=== PATIENT | female | born 1945 | race Caucasian/White ===

== ENCOUNTER 2020-03-26 11:43 | Emergency (ER) | payer MEDICARE, BC ==
[2020-03-26] MEDS ORDERED: Sodium Chloride 0.9% 10 ML Syringe FLUSH PRN (11:55)
--- NOTE | 2020-03-26 12:22 | EDM.PDOC ---
ED HPI GENERAL MEDICAL PROBLEM - General Chief Complaint: Chest Pain Stated Complaint: CHEST PAIN Time Seen by Provider: 03/26/20 11:55 Source of Information: Reports: Patient, RN Notes Reviewed History Limitations: Reports: No Limitations - History of Present Illness INITIAL COMMENTS - FREE TEXT/NARRATIVE: Patient is a 74-year-old female who presents to the ED for further evaluation of her intermittent chest pain. She notes that this is been present for the last couple weeks. She states that this comes and goes, seems to worsen at night when she sleeping on her left chest. She notes this pain is in the left mid chest region, at the top portion of her boob. She states this is somewhat of a pressure, and she states when she presses on her left chest, she can kind of re- create the pain or pressure. She does note that it seems to get better with rest. She is also noticed that she is getting more short of breath when she walks short distances, or up just a few stairs. She notes this is new for her. She states that she was making sauerkraut today when she developed the chest pain. She denies any trauma to her chest, and states she is not doing any pushing/pulling motions that would be abnormal for her. She did state that this chest pain woke her up at around 3 AM with the amount of discomfort she had. She does state that her sister recently had a quadruple bypass, and she notes her mother had issues with her heart as well however she cannot recall what this was. She believes that she had a stress test, but this was done many years ago and she thinks this was about 19 years ago. Her primary care provider is Dr. Cazares. She denies any fevers or chills, cough, nausea/vomiting/diarrhea, any abdominal pain. Left Chest Pain Score (Numeric/FACES): 3 - Related Data Allergies Allergy/AdvReac Type Severity Reaction Status Date / Time Sulfa (Sulfonamide Allergy Rash Verified 03/26/20 11:58 Antibiotics) Home Meds: Home Meds Bisoprolol/Hydrochlorothiazide [Bisoprolol/HCTZ 10-6.25 MG] 1 tab PO DAILY 03/26/20 [History] Losartan [Cozaar] 50 mg PO DAILY 03/26/20 [History] Simvastatin 1 tab PO BEDTIME 03/26/20 [History] amLODIPine [Norvasc] 5 mg PO DAILY 03/26/20 [History] Social & Family History - Family History Cardiac: Reports: Bypass (sister with recent quadruple bypass,), Other (See Below) (mother with unknown cardiac issues) - Tobacco Use Smoking Status *Q: Never Smoker - Alcohol Use Alcohol Use History: No - Recreational Drug Use Recreational Drug Use: No ED ROS GENERAL - Review of Systems Review Of Systems: Comprehensive ROS is negative, except as noted in HPI. ED EXAM, GENERAL - Physical Exam Exam: See Below Exam Limited By: No Limitations General Appearance: Alert, WD/WN, No Apparent Distress Respiratory/Chest: No Respiratory Distress, Lungs Clear, Normal Breath Sounds, No Accessory Muscle Use, Other (the patient's chest tender to palpation on the left chest in midclavicular line around the 3-5th ribs) Cardiovascular: Normal Peripheral Pulses, Regular Rate, Rhythm, No Murmur Peripheral Pulses: 2+: Radial (L), Radial (R) GI/Abdominal: Normal Bowel Sounds, Soft, Non-Tender, No Distention, No Mass Extremities: Normal Inspection, Normal Capillary Refill Neurological: Alert, Oriented, Normal Cognition, No Motor/Sensory Deficits Psychiatric: Normal Affect, Normal Mood Skin Exam: Warm, Dry, Intact, Normal Color, No Rash EKG INTERPRETATION EKG Date: 03/26/20 Time: 11:49 Rhythm: NSR Rate (Beats/Min): 62 [place]: Normal P-Wave: Present QRS: Normal ST-T: Normal QT: Normal Comparison: NA - No Prior EKG EKG Interpretation Comments: No obvious ischemia or acute ST changes noted, reviewed by myself and Dr. Dial Course - Vital Signs Last Recorded V/S: Last Vital Signs Temp 96.9 F 03/26/20 11:58 Pulse 59 L 03/26/20 11:58 Resp 16 03/26/20 11:58 BP 168/85 H 03/26/20 11:58 Pulse Ox 97 03/26/20 11:58 - Orders/Labs/Meds Orders: Active Orders 24 hr Category Date Time Status EKG Documentation Completion [RC] AM Care 03/26/20 11:55 Active Peripheral IV Care [RC] . DIRECTED Care 03/26/20 11:55 Active Sodium Chloride 0.9% [Normal Saline] 1,000 ml Med 03/26/20 12:56 Ordered IV ONETIME Sodium Chloride 0.9% [Saline Flush] Med 03/26/20 11:55 Active 10 ml FLUSH ASDIRECTED PRN Peripheral IV Insertion Adult [OM.PC] Stat Oth 03/26/20 11:55 Ordered Medication Orders Sodium Chloride (Normal Saline) 1,000 mls @ 999 mls/hr IV ONETIME ONE Stop: 03/26/20 13:56 Last Admin: 03/26/20 13:10 Dose: 999 mls/hr Documented by: SHIV Sodium Chloride (Saline Flush) 10 ml FLUSH ASDIRECTED PRN PRN Reason: Keep Vein Open Last Admin: 03/26/20 12:03 Dose: 10 ml Documented by: GARCÍA Labs: Laboratory Tests 03/26/20 03/26/20 03/26/20 Range/Units 12:00 12:00 12:00 WBC 4.09 (3.98-10.04) K/mm3 RBC 4.53 (3.98-5.22) M/mm3 Hgb 13.9 (11.2-15.7) gm/dl Hct 40.4 (34.1-44.9) % MCV 89.2 (79.4-94.8) fl MCH 30.7 (25.6-32.2) pg MCHC 34.4 (32.2-35.5) g/dl RDW Std Deviation 40.9 (36.4-46.3) fL Plt Count 253 (182-369) K/mm3 MPV 8.5 L (9.4-12.3) fl Neut % (Auto) 52.2 (34.0-71.1) % Lymph % (Auto) 35.2 (19.3-51.7) % [place] % (Auto) 10.5 (4.7-12.5) % Eos % (Auto) 1.7 (0.7-5.8) Baso % (Auto) 0.2 (0.1-1.2) % Neut # (Auto) 2.13 (1.56-6.13) K/mm3 Lymph # (Auto) 1.44 (1.18-3.74) K/mm3 [place] # (Auto) 0.43 H (0.24-0.36) K/mm3 Eos # (Auto) 0.07 (0.04-0.36) K/mm3 Baso # (Auto) 0.01 (0.01-0.08) K/mm3 PT 10.3 (9.7-12.0) SECONDS INR 0.96 APTT 25 (22-31) SECONDS Sodium 128 L (136-145) mEq/L Potassium 3.6 (3.5-5.1) mEq/L Chloride 93 L (98-107) mEq/L Carbon Dioxide 26 (21-32) mEq/L Anion Gap 12.6 (5-15) BUN 8 (7-18) mg/dL Creatinine 0.9 (0.55-1.02) mg/dL Est Cr Clr Drug Dosing 43.37 mL/min Estimated GFR (MDRD) > 60 (>60) mL/min BUN/Creatinine Ratio 8.9 L (14-18) Glucose 94 (83-115) mg/dL Calcium 9.1 (8.5-10.1) mg/dL Magnesium 1.8 (1.8-2.4) mg/dl Total Bilirubin 0.8 (0.2-1.0) mg/dL AST 27 (15-37) U/L ALT 11 L (14-59) U/L Alkaline Phosphatase 50 (46-116) U/L Troponin I < 0.017 (0.00-0.056) ng/mL NT-Pro-B Natriuret Pep (0-125) pg/mL Total Protein 7.8 (6.4-8.2) g/dl Albumin 4.2 (3.4-5.0) g/dl Globulin 3.6 gm/dL Albumin/Globulin Ratio 1.2 (1-2) 03/26/20 Range/Units 12:00 WBC (3.98-10.04) K/mm3 RBC (3.98-5.22) M/mm3 Hgb (11.2-15.7) gm/dl Hct (34.1-44.9) % MCV (79.4-94.8) fl MCH (25.6-32.2) pg MCHC (32.2-35.5) g/dl RDW Std Deviation (36.4-46.3) fL Plt Count (182-369) K/mm3 MPV (9.4-12.3) fl Neut % (Auto) (34.0-71.1) % Lymph % (Auto) (19.3-51.7) % [place] % (Auto) (4.7-12.5) % Eos % (Auto) (0.7-5.8) Baso % (Auto) (0.1-1.2) % Neut # (Auto) (1.56-6.13) K/mm3 Lymph # (Auto) (1.18-3.74) K/mm3 [place] # (Auto) (0.24-0.36) K/mm3 Eos # (Auto) (0.04-0.36) K/mm3 Baso # (Auto) (0.01-0.08) K/mm3 PT (9.7-12.0) SECONDS INR APTT (22-31) SECONDS Sodium (136-145) mEq/L Potassium (3.5-5.1) mEq/L Chloride (98-107) mEq/L Carbon Dioxide (21-32) mEq/L Anion Gap (5-15) BUN (7-18) mg/dL Creatinine (0.55-1.02) mg/dL Est Cr Clr Drug Dosing mL/min Estimated GFR (MDRD) (>60) mL/min BUN/Creatinine Ratio (14-18) Glucose (83-115) mg/dL Calcium (8.5-10.1) mg/dL Magnesium (1.8-2.4) mg/dl Total Bilirubin (0.2-1.0) mg/dL AST (15-37) U/L ALT (14-59) U/L Alkaline Phosphatase (46-116) U/L Troponin I (0.00-0.056) ng/mL NT-Pro-B Natriuret Pep 108 (0-125) pg/mL Total Protein (6.4-8.2) g/dl Albumin (3.4-5.0) g/dl Globulin gm/dL Albumin/Globulin Ratio (1-2) Meds: Medications Generic Name Dose Route Start Last Admin Trade Name Freq PRN Reason Stop Dose Admin Sodium Chloride 1,000 mls @ 999 mls/hr 03/26/20 12:56 03/26/20 13:10 Normal Saline IV 03/26/20 13:56 999 mls/hr ONETIME ONE Administration Sodium Chloride 10 ml 08/17/20 11:55 03/26/20 12:03 Saline Flush FLUSH 10 ml ASDIRECTED PRN Administration Keep Vein Open - Re-Assessments/Exams Free Text/Narrative Re-Assessment/Exam: 03/26/20 12:23 Patient presents to the ED for her ongoing chest discomfort. This may very well be chest wall pain as it is reproducible on exam. However due to her cardiac history in her family. I will set her up with a stress test on outpatient basis if everything comes back okay today. 03/26/20 12:58 Patient's labs have returned, metabolic panel is impressive for a low sodium of 128. Patient will be given a bag of fluids for management of this. No other major abnormalities were appreciated. Departure - Departure Time of Disposition: 13:19 Disposition: Home, Self-Care 01 Condition: Good Clinical Impression: Atypical chest pain, Dyspnea on exertion Instructions: Chest Wall Pain, [id number], Shortness of Breath, Adult, [id number] Referrals: Josef Cazares MD [Primary Care Provider] - Forms: ED Department Discharge Additional Instructions: You were evaluated in the ER today regarding your chest pain. Your EKG, chest x-ray, and laboratory evaluation demonstrates no sign of a heart attack, or any other specific cardiac etiology. Your sodium level was mildly low, you were given a bag of IV fluids to help supplement this. This may be due to increased water intake, among other things. I would recommend in the next day or 2, try to limit your water intake and drink fluids like Gatorade or Powerade, you may also try to eat a little extra salt with your meals as well. You have been given an outpatient order for a stress test, our hospital will call you to schedule you for the stress test. After the stress test has been done, you should make a follow-up appoint with Dr. Cazares, roughly 1 week after the test, for results and follow-up. Your chest pain seems to be most likely musculoskeletal chest wall pain. You can take 500 mg Tylenol or 600 mg ibuprofen every 6 hours as needed for further pain relief. Do not exceed 4000 mg Tylenol or 3200 mg ibuprofen in a 24-hour time span. Please return to the ER at any time if your symptoms change or worsen. Sepsis Event Note (ED) - Evaluation Sepsis Screening Result: No Definite Risk - Focused Exam Vital Signs: Vital Signs Temp Pulse Resp BP Pulse Ox 03/26/20 11:58 96.9 F 59 L 16 168/85 H 97 - My Orders Last 24 Hours: My Active Orders 03/26/20 11:55 EKG Documentation Completion [RC] AM Peripheral IV Care [RC] . DIRECTED Sodium Chloride 0.9% [Saline Flush] 10 ml FLUSH ASDIRECTED PRN Peripheral IV Insertion Adult [OM.PC] Stat 03/26/20 12:56 Sodium Chloride 0.9% [Normal Saline] 1,000 ml IV ONETIME - Assessment/Plan Last 24 Hours: My Active Orders 03/26/20 11:55 EKG Documentation Completion [RC] AM Peripheral IV Care [RC] . DIRECTED Sodium Chloride 0.9% [Saline Flush] 10 ml FLUSH ASDIRECTED PRN Peripheral IV Insertion Adult [OM.PC] Stat 03/26/20 12:56 Sodium Chloride 0.9% [Normal Saline] 1,000 ml IV ONETIME
[2020-03-26] MEDS ORDERED: Sodium Chloride 0.9% 1,000 ML IV ONE (12:56)
--- NOTE | 2020-03-26 13:10 | CR ---
Chest: Portable view of the chest was obtained. Comparison: No prior chest imaging. Heart size is normal. Tortuous thoracic aorta is seen. Slight bibasilar atelectasis is noted. Lungs show no acute parenchymal change. Degenerative change is noted within both shoulders. Impression: 1. Findings as noted above. 2. Nothing acute is appreciated. Diagnostic code #2 This report was dictated in MDT
== END 2020-03-26 13:59 | disposition home or self-care (01) ==
LOC: JD.ED 11:43
DX: R07.89 Other chest pain (principal); R06.00 Dyspnea, unspecified; Z88.2 Allergy status to sulfonamides; Z79.899 Other long term (current) drug therapy
CPT/HCPCS: 36415; 71045; 80053; 83735; 83880; 84484; 85025; 85610; 85730; 93005; 99285; J7030; 93010; 99283